=== PATIENT | male | born 1980 | race Caucasian/White ===

== ENCOUNTER 2018-08-21 07:33 | Emergency (ER) | payer MEDICAID ==
[~2018-08-21 07:33] MED LIST: ALBU8.5H12 IH; AZIT500T47 PO; CEFU250 PO; OXYGEN INH; PHEN100 PO; PRED-314 PO
--- NOTE | 2018-08-21 07:35 | ER Report ---
History and Physical Time Seen By MD: 07:35 HPI/ROS CHIEF COMPLAINT: Dyspnea HISTORY OF PRESENT ILLNESS: Patient is 38 year old male who states that last evening he began having difficulty breathing with increased work of breathing and wheeze. He did try his inhaler at home without improvement. Patient does smoke a half pack of cigarettes daily. He denies fever but does report chills last evening. He also reports 3-4 days ago with some sore throat. No known ill contacts at home. In addition to his rescue inhaler takes an inhaled steroid d aily. Patient has prior history of asthma attacks and visits to the emergency department for the same REVIEW OF SYSTEMS: Constitutional: Chills Eyes: No discharge. ENT: No sore throat. Cardiovascular: No chest pain, no palpitations. Respiratory: Cough, shortness of breath, wheezing Gastrointestinal: No abdominal pain, no vomiting. Genitourinary: No hematuria. Musculoskeletal: No back pain. Skin: No rashes. Neurological: No headache. Allergies: Coded Allergies: No Known Drug Allergies (Unverified , 08/21/18) Home Meds Active Scripts Prednisone (PREDNISONE) 20 Mg Tablet, 60 MG PO QDAY, #12 TAB 0 Refills first dose on 08/22/18 Prov:JULIO LOPEZ MD 08/21/18 Albuterol Sulfate 0.083% (ALBUTEROL SULFATE 0.083%) 2.5 Mg/3 Ml Vial.neb, 2.5 MG INH Q4H, #1 BOX 0 Refills Prov:JULIO LOPEZ MD 08/21/18 Penicillin V Potassium 500 Mg Tab (PENICILLIN V POTASSIUM 500 MG TAB) 500 Mg Tablet, 500 MG PO QID for 10 Days, #40 TAB 0 Refills Prov:JULIO LOPEZ MD 08/21/18 Reported Medications Azithromycin (Zithromax) 500 Mg Tablet, 500 MG PO QPM take one dose tonight, then discontinue. 01/22/12 Albuterol Sulfate (Albuterol Sulfate Hfa) 8.5 Gm Hfa.aer.ad, 8.5 GM IH QID 2 puffs four times a day 01/19/12 Discontinued Reported Medications Prednisone (PREDNISONE) 20 Mg Tablet, 20 MG PO QDAY 01/22/12 Oxygen (Oxygen) 2 L Inha, 4 L INH PRN to wear continuously. 01/22/12 Phenytoin Sodium (DILANTIN (OR EQUIV)) 100 Mg Cap, 400 MG PO QHS 01/22/12 Cefuroxime Axetil (Ceftin) 250 Mg Tab, 500 MG PO BID twice a day for 7 days. Take until all gone. 01/22/12 Past Medical/Surgical History Asthma Hx Smoking: Yes Hx Substance Use Disorder: Yes Hx Alcohol Use: Yes Constitutional Vital Sign - Last 24 Hours 08/21/18 08/21/18 08/21/18 08/21/18 07:35 07:45 08:00 08:00 Temp 98.0 Pulse 118 118 115 Resp 18 20 B/P (MAP) 146/104 Pulse Ox 90 92 93 O2 Delivery Room Air Room Air 08/21/18 08/21/18 08/21/18 08/21/18 08:02 08:05 08:20 08:22 Pulse 116 110 111 110 Resp 18 9 13 18 B/P (MAP) 117/90 (99) Pulse Ox 90 95 95 08/21/18 08/21/18 08/21/18 08/21/18 08:22 08:30 08:35 08:40 Pulse 113 111 Resp 13 19 B/P (MAP) 117/68 (84) Pulse Ox 94 96 94 O2 Delivery Cool Aerosol 08/21/18 08/21/18 08/21/18 08/21/18 08:43 08:43 09:00 09:05 Pulse 110 112 Resp 18 15 B/P (MAP) 139/87 (104) Pulse Ox 90 85 86 O2 Delivery Room Air Room Air 08/21/18 08/21/18 08/21/18 08/21/18 09:05 09:06 09:20 09:30 Pulse 110 Resp 26 B/P (MAP) 123/72 (89) Pulse Ox 90 90 O2 Delivery Nasal Cannula O2 Flow Rate 2.0 2 08/21/18 08/21/18 08/21/18 08/21/18 09:35 09:40 09:45 09:50 Pulse 107 105 106 103 Resp 18 18 19 16 Pulse Ox 89 89 88 88 08/21/18 08/21/18 09:55 10:00 Pulse 102 104 Resp 24 Pulse Ox 90 90 Physical Exam General/Constitutional: Patient is awake, alert, increased work of breathing Head: Normocephalic and atraumatic. Eyes: Conjunctival clear, Pupils are equal and reactive to light. Extraocular muscles are intact and symmetrical. Sclera are clear and anicteric. Ears:External canals are clear. Tympanic membranes are clear with normal landmarks and light reflex. Nares: No rhinorrhea or bleeding. Turbinates are pink and moist. Oropharyngeal: Mucous membranes are moist. Pharyngeal erythema and swelling, uvula symmetrical Neck: Supple, no adenopathy. Cardiovascular: Heart is tachycardic with regular rhythm without audible murm urs, rubs or gallops. Pulmonary: Lungs are reviewed for diffuse expiratory wheeze and prolonged exp iratory phase throughout Abdomen: Soft, nontender, no guarding or peritoneal signs. Extremities: No gross deformities, No peripheral cyanosis. Able to move all 4 extremities. Neuro: Alert and oriented X3, Skin: No rashes, skin is warm dry and well perfused. Medical Decision Making Data Points Result Diagram: 08/21/18 0740 08/21/18 0740 Laboratory Hematology Test 08/21/18 07:40 08/21/18 07:50 Red Blood Count 5.74 M/uL (4.00-5.60) Mean Corpuscular Volume 89.0 fL (80.0-96.0) Mean Corpuscular Hemoglobin 30.0 pg (26.0-33.0) Mean Corpuscular Hemoglobin Concent 33.7 g/dL (32.0-36.0) Red Cell Distribution Width 14.1 % (11.5-14.5) Mean Platelet Volume 7.9 fL (7.2-11.1) Neutrophils (%) (Auto) 76.7 % (39.4-72.5) Lymphocytes (%) (Auto) 15.4 % (17.6-49.6) Monocytes (%) (Auto) 6.0 % (4.1-12.4) Eosinophils (%) (Auto) 1.3 % (0.4-6.7) Basophils (%) (Auto) 0.6 % (0.3-1.4) Nucleated RBC Relative Count (auto) 0.0 /100WBC Neutrophils # (Auto) 10.7 K/uL (2.0-7.4) Lymphocytes # (Auto) 2.2 K/uL (1.3-3.6) Monocytes # (Auto) 0.8 K/uL (0.3-1.0) Eosinophils # (Auto) 0.2 K/uL (0.0-0.5) Basophils # (Auto) 0.1 K/uL (0.0-0.1) Nucleated RBC Absolute Count (auto) 0.00 K/uL Peripheral Blood Smear No Y/N Sodium Level 140 mmol/L (137-145) Potassium Level 4.0 mmol/L (3.5-5.0) Chloride Level 99 mmol/L (98-107) Carbon Dioxide Level 28 mmol/L (22-30) Blood Urea Nitrogen 13 mg/dl (9-21) Creatinine 0.80 mg/dl (0.66-1.25) Glomerular Filtration Rate Calc > 60.0 Random Glucose 107 mg/dl (75-110) Calcium Level 9.1 mg/dl (8.4-10.2) Total Bilirubin 1.5 mg/dl (0.2-1.3) Aspartate Amino Transf (AST/SGOT) 26 U/L (0-35) Alanine Aminotransferase (ALT/SGPT) 25 U/L (0-56) Alkaline Phosphatase 138 U/L (0-126) Total Protein 8.5 g/dl (6.3-8.2) Albumin 4.3 g/dl (3.5-5.0) Influenza Virus Type A (PCR) Negative (NEGATIVE) Influenza Virus Type B (PCR) Negative (NEGATIVE) Group A Streptococcus Screen Positive (NEGATIVE) Chemistry Test 08/21/18 07:40 08/21/18 07:50 White Blood Count 14.0 k/uL (4.5-11.0) Red Blood Count 5.74 M/uL (4.00-5.60) Hemoglobin 17.2 g/dL (14.0-18.0) Hematocrit 51.1 % (42.0-52.0) Mean Corpuscular Volume 89.0 fL (80.0-96.0) Mean Corpuscular Hemoglobin 30.0 pg (26.0-33.0) Mean Corpuscular Hemoglobin Concent 33.7 g/dL (32.0-36.0) Red Cell Distribution Width 14.1 % (11.5-14.5) Platelet Count 470 K/uL (150-450) Mean Platelet Volume 7.9 fL (7.2-11.1) Neutrophils (%) (Auto) 76.7 % (39.4-72.5) Lymphocytes (%) (Auto) 15.4 % (17.6-49.6) Monocytes (%) (Auto) 6.0 % (4.1-12.4) Eosinophils (%) (Auto) 1.3 % (0.4-6.7) Basophils (%) (Auto) 0.6 % (0.3-1.4) Nucleated RBC Relative Count (auto) 0.0 /100WBC Neutrophils # (Auto) 10.7 K/uL (2.0-7.4) Lymphocytes # (Auto) 2.2 K/uL (1.3-3.6) Monocytes # (Auto) 0.8 K/uL (0.3-1.0) Eosinophils # (Auto) 0.2 K/uL (0.0-0.5) Basophils # (Auto) 0.1 K/uL (0.0-0.1) Nucleated RBC Absolute Count (auto) 0.00 K/uL Peripheral Blood Smear No Y/N Glomerular Filtration Rate Calc > 60.0 Calcium Level 9.1 mg/dl (8.4-10.2) Total Bilirubin 1.5 mg/dl (0.2-1.3) Aspartate Amino Transf (AST/SGOT) 26 U/L (0-35) Alanine Aminotransferase (ALT/SGPT) 25 U/L (0-56) Alkaline Phosphatase 138 U/L (0-126) Total Protein 8.5 g/dl (6.3-8.2) Albumin 4.3 g/dl (3.5-5.0) Influenza Virus Type A (PCR) Negative (NEGATIVE) Influenza Virus Type B (PCR) Negative (NEGATIVE) Group A Streptococcus Screen Positive (NEGATIVE) ED Course/Re-evaluation ED Course 08/21/2018 7:52:54 am patient with asthma exacerbation. Plan at this time will be to place an IV check CBC CMP obtain chest x-ray we will also do flu swab and strep screen. Will give hour-long nebulizer treatment with albuterol and Atrovent along with 125 mg of Solu-Medrol IV Re-evaluation 08/21/2018 8:10:06 am pretreatment peak flow was 80 L/m which is 12% of predicted for patient 08/21/2018 8:45:26 am after nebulizer treatment posttest peak flow was 150 L/m which is 24% of predicted Decision to Disposition Date: Aug 21, 2018 Decision to Disposition Time: 10:11 Depart Departure Latest Vital Signs Vital Signs Date Time Temp Pulse Resp B/P (MAP) Pulse Ox O2 Delivery O2 Flow Rate FiO2 08/21/18 10:00 104 90 08/21/18 09:55 24 08/21/18 09:30 123/72 (89) 08/21/18 09:06 Nasal Cannula 2 08/21/18 07:35 98.0 Impression: Primary Impression: Asthma exacerbation Condition: Improved Disposition: HOME OR SELF-CARE Referrals: FERNANDA MUNSON MD (PCP) New Scripts Prednisone (PREDNISONE) 20 Mg Tablet 60 MG PO QDAY, #12 TAB 0 Refills first dose on 08/22/18 Prov: JULIO LOPEZ MD 08/21/18 Albuterol Sulfate 0.083% (ALBUTEROL SULFATE 0.083%) 2.5 Mg/3 Ml Vial.neb 2.5 MG INH Q4H, #1 BOX 0 Refills Prov: JULIO LOPEZ MD 08/21/18 Penicillin V Potassium 500 Mg Tab (PENICILLIN V POTASSIUM 500 MG TAB) 500 Mg Tablet 500 MG PO QID for 10 Days, #40 TAB 0 Refills Prov: JULIO LOPEZ MD 08/21/18 Departure Forms: ER Transition Record, Home Oxygen, Nebulizer RX, Home Ox ygen Company Chosen by Patient: Durable Medical Equipment-Oxygen: Oxygen Concentrator, Portable Oxygen Gas, Nebulizer Reason for Use/Diagnosis: asthma exacerbation Start Date of the Order: Aug 21, 2018 Dosage or Concentration (if applicable) - LPM: 2 Route of Administration (if applicable): Nasal Cannula Frequency of Use: Continuous Duration Home O2 Required: 7 Duration Units: Days Room Air Oxygen Saturation: 85 ER Prescribing Physician's Name: Julio Lopez NPI Numbers for Local ER MDs: Jessica [id number] Medications Reconciliation, Patient Portal Information Patient Instructions: Asthma (ED) Additional Instructions: Use your albuterol nebulizer every 4 hours for the next 72 hours. Then use nebulizer every 4-6 hours as needed for wheezing or cough as needed. Take your antibiotics as directed Take your prednisone as directed starting tomorrow Return to the emergency department if your symptoms worsen or persist greater than 72 hours Problem Qualifiers Primary Impression: Asthma exacerbation Asthma severity: severe Asthma persistence: persistent Qualified Codes: J45.51 - Severe persistent asthma with (acute) exacerbation JULIO LOPEZ MD Aug 21, 2018 07:35
[2018-08-21] MEDS ORDERED: methylPREDNIS SUCC 125 MG/2ML IVP ONE (07:50)
[2018-08-21] MEDS ORDERED: IPRATROPIUM 0.5MG/2.5ML NEB NEB ONE (07:50)
[2018-08-21] MEDS ORDERED: ALBUTEROL 2.5 MG/0.5ML ER ONLY NEB ONE (07:50)
[2018-08-21 07:56] LABS: PLATELET COUNT, AUTOMATED 470 K/uL (150-450)
[2018-08-21] MEDS ORDERED: cefTRIAXone 1 GM VIAL IVP ONE (08:30)
[2018-08-21] MEDS ORDERED: ALBU2.5V36 INH (09:24)
[2018-08-21] MEDS ORDERED: PRED20TA6 PO (09:24)
[2018-08-21] MEDS ORDERED: PENI-24 PO (09:24)
--- NOTE | 2018-08-21 09:27 | RADIOLOGY IMAGING REPORT ---
FACILITY: [facility] PATIENT NAME: Carmelo Duarte : 1980 MR: [id number] V: [id number] EXAM DATE: ORDERING PHYSICIAN: KARISSA GORDON TECHNOLOGIST: Location: [facility] - [place] Patient: Carmelo Duarte : 1980 Visit/Account:[id number] Date of Sevice: 08/21/2018 CHEST PA AND LAT Indication: RESP DISTRESS Comparison: Chest x-ray 01/20/2012 Findings: Lungs: Clear. Mediastinum/pulmonary vasculature: Heart size and pulmonary vasculature are normal. Bones/soft tissues: Normal. IMPRESSION: Clear lungs. Report Dictated By: Moi Boyd at 08/21/2018 9:23 AM Report E-Signed By: Moi Boyd at 08/21/2018 9:23 AM [id number]
[2018-08-21 09:30] VITALS: BP 123/72
== END 2018-08-21 10:02 | disposition home or self-care (01) ==
LOC: ER 07:51
DX: J45.51 Severe persistent asthma with (acute) exacerbation (principal)
CPT/HCPCS: 71046; 85025; 87081; 87502; 87880; 94644; 96374; 96375; 99283; J0696; J2930; J7611; J7644; 82040; 82247; 82310; 82374; 82435; 82565; 82947; 84075; 84132; 84155; 84295; 84450; 84460; 84520